=== PATIENT | male | born 2000 | race Caucasian/White ===

== ENCOUNTER 2018-04-19 02:54 | Inpatient (IN) | payer OTHER ==
[~2018-04-19] VITALS: Ht 175.3 cm; Wt 78.7 kg
[2018-04-19] MEDS ORDERED: IBUPROFEN 400 MG TAB PO PRN (04:15)
[2018-04-19] MEDS ORDERED: MAALOX 30 ML SUSP *UDC PO PRN (04:15)
[2018-04-19] MEDS ORDERED: MOM 30ML SUSPENSION UDC PO PRN (04:15)
[2018-04-19 04:52] VITALS: BP 134/60
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
[2018-04-19] MEDS ORDERED: SERTRALINE HCL 50 MG TAB PO ONE (11:15)
[2018-04-19 11:29] LABS: HEMATOCRIT 42.5 % (42.0-52.0); HEMOGLOBIN 14.5 g/dl (13.5-17.5); MEAN CORPUSCULAR HEMOGLOBIN 28.2 pg (27.0-33.0); MEAN CORPUSCULAR HGB CONC 34.1 g/dl (32.0-36.5); MEAN CORPUSCULAR VOLUME 82.7 fl (80.0-96.0); PLATELET COUNT, AUTOMATED 175 10^3/uL (150-450); RED BLOOD COUNT 5.14 10^6/uL (4.30-6.10); WHITE BLOOD COUNT 5.7 10^3/uL (4.0-10.0)
[2018-04-19 12:17] LABS: ALBUMIN 3.7 GM/DL (3.2-5.2); ALT/SGPT 19 U/L (12-78); BILIRUBIN,TOTAL 2.3 MG/DL (0.2-1.0); BLOOD UREA NITROGEN 18 MG/DL (7-18); CARBON DIOXIDE LEVEL 29 MEQ/L (21-32); CHLORIDE LEVEL 107 MEQ/L (98-107); CREATININE FOR GFR 0.83 MG/DL (0.70-1.30); GLUCOSE, FASTING 107 MG/DL (70-100); POTASSIUM SERUM 4.4 MEQ/L (3.5-5.1); SODIUM LEVEL 142 MEQ/L (136-145); TOTAL PROTEIN 6.4 GM/DL (6.4-8.2)
[2018-04-19 18:00] VITALS: BP 134/62
--- NOTE | 2018-04-19 20:11 | ECGEPIP ---
Stationary ECG Study [facility] Test Date: 2018-04-19 Pat Name: DAYSI VALE Department: Room: [place] [address] Gender: M [employer] Librarian: : 2000 Requested By: Delaney Ulloa Order Number: [id number] Reading MD: Momo Salguero Measurements Intervals [place] Rate: 62 P: 36 HI: 144 QRS: 75 QRSD: 105 T: 63 QT: 377 QTc: 385 Interpretive Statements Normal sinus rhythm with PAC Normal EKG Comparison tracing not on file Electronically Signed On 04-19-2018 20:11:18 EDT by Momo Salguero
[2018-04-19] MEDS: traZODone 50 MG TAB PO PRN (21:07)
[2018-04-20 06:00] VITALS: BP 107/51
[2018-04-20] MEDS: SERTRALINE HCL 50 MG TAB PO SCH (09:24)
--- NOTE | 2018-04-20 10:05 | MHIPNPDOC ---
[facility] Progress Note Progress Note DATE OF SERVICE: 04/20/18 HISTORY: Patient is a 17 -year-old , AD male, with no previous psych history who was transferred from [facility] after stabilized after he consumed a bottle and a half of Nyquil he stated in the ED to "fall asleep." Per ED, Pt had told Jose David that he wasn't do well and took 1.5 bottle nyquil then text "the worst I've ever been" and pt needing to talk to someone but failed to text his Jose David back after an hour like he was asked so Jose David went to check on pt. Per ED, pt has been going thru psychosocial stressors of his leaving him and becoming with another man, his girlfriend breaking up with him, and his grandfather passing away 04/15/18. Pt in the ED stated he usually drinks 'three sips" of nyquil nightly to fall asleep but took 1.5 bottles at 1600 in an attempt to sleep thru the night. Per ED, pt minimizing OD. VITAL SIGNS: See below. NEW TEST RESULTS: See below. CURRENT MEDICATIONS: See below. MENTAL STATUS EXAMINATION: General Appearance: well groomed, appears stated age, hospital scubs/clothing Build: average Demeanor: withdrawn, guarded Eye Contact: poor Activity: anxious Behavior: cooperative, withdrawn Speech: clear, normal volume, reg/rate,rhythm,volume Mood: depressed, anxious Mood sad Affect: constricted, flat, appropriate, congruent, anxious Thought Process: logical/linear, depressed, intact Thought Content (Delusions): none reported, denies SI, HI, AVH Thought Content (Other): none reported, appropriate Thought Content (Aggressive): none reported Perception (Hallucinations): none reported Perception (Other): none reported Cognition (Impairment of): none reported Cognition(Intelligence Est.): average Oriented: Awake, Alert, Oriented times three Insight: poor Judgment: Poor Psychosis: Denies DIAGNOSES: Major Depressive D/O 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 Pt unwilling to talk fully about his sadness or find anything within him that may make him feel good or no sad. He is very guarded still and gives superficial responses to escape talking about his feelings. States he's tolerating zoloft but unsure if it's beneficial yet. States trazodone was beneficial for sleep. He has poor insight and judgement due to desire to just hold all his thoughts and feelings in and not talk about them or let himself be vulnerable. Admits he's not attending most of the groups and highly encouraged to go as part of his treatment and attempt to talk to staff more about his overall well being. Denies SI/HI, hallucinations, delusions. Feels safe here. MANAGEMENT PLAN: continue plan. Medications: zoloft 50mg daily trazodone 50mg qhs prn insomnia TIME SPENT: 30 minutes. Vital Signs Vital Signs Date Time Temp Pulse Resp B/P (MAP) Pulse Ox O2 Delivery O2 Flow Rate FiO2 04/20/18 06:00 98.3 60 14 107/51 (69) 04/19/18 03:12 99 Room Air Laboratory Data 24H Labs Laboratory Tests 2 04/19/18 10:29: Nucleated Red Blood Cells % (auto) 0.0, Anion Gap 6L, Blood Urea Nitrogen 18, C reatinine 0.83, Sodium Level 142, Potassium Level 4.4, Chloride Level 107, Carbon Dioxide Level 29, Calcium Level 9.0, Aspartate Amino Transf (AST/SGOT) 12, Alanine Aminotransferase (ALT/SGPT) 19, Alkaline Phosphatase 57, Total Bilirubin 2.3H, Total Protein 6.4, Albumin 3.7, Albumin/Globulin Ratio 1.37, Thyroid Stimulating Hormone (TSH) 1.120 CBC/BMP Laboratory Tests 04/19/18 10:29 Red Blood Count 5.14, Mean Corpuscular Volume 82.7, Mean Corpuscular Hemoglobin 28.2, Mean Corpuscular Hemoglobin Concent 34.1, Red Cell Distribution Width 12.3, Calcium Level 9.0, Aspartate Amino Transf (AST/SGOT) 12, Alanine Aminotransferase (ALT/SGPT) 19, Alkaline Phosphatase 57, Total Bilirubin 2.3 H, Total Protein 6.4, Albumin 3.7 Current Medications Current Medications Al Hydrox/Mg Hydrox/Simethicone (Mylanta) 30 ml Q4HP PRN PO HEARTBURN/ INDIGESTION; Start 04/19/18 at 04:15 Home Med (Med Rec Complete!) ASDIRECTED XX ; Start 04/19/18 at 04:15; Stop 04/19/18 at 04:15; Status DC Ibuprofen (Advil) 600 mg Q6HP PRN PO PAIN OR FEVER; Start 04/19/18 at 04:15 Magnesium Hydroxide (Milk Of Magnesia) 30 ml DAILYPRN PRN PO CONSTIPATION; Sta rt 04/19/18 at 04:15 Sertraline HCl (Zoloft) 50 mg DAILY PO Last administered on 04/20/18at 09:24; S tart 04/20/18 at 09:00 Trazodone HCl (Desyrel) 50 mg QHSP PRN PO INSOMNIA Last administered on at 21:07; Start 04/19/18 at 04:15 Allergies Coded Allergies: No Known Allergies (Unverified , 04/19/18) [place] DO Apr 20, 2018 10:05 am
[2018-04-20 18:18] VITALS: BP 103/68
[2018-04-20] MEDS: traZODone 50 MG TAB PO PRN (22:25)
[2018-04-21 06:41] VITALS: BP 111/54
[2018-04-21] MEDS: SERTRALINE HCL 50 MG TAB PO SCH (08:21)
--- NOTE | 2018-04-21 09:02 | MHIPNPDOC ---
[facility] Progress Note Progress Note DATE OF SERVICE: 04/21/18 HISTORY: Patient is a 17 -year-old , AD male, with no previous psych history who was transferred from [facility] after stabilized after he consumed a bottle and a half of Nyquil he stated in the ED to "fall asleep." Per ED, Pt had told Jose David that he wasn't do well and took 1.5 bottle nyquil then text "the worst I've ever been" and pt needing to talk to someone but failed to text his Jose David back after an hour like he was asked so Jose David went to check on pt. Per ED, pt has been going thru psychosocial stressors of his leaving him and becoming with another man, his girlfriend breaking up with him, and his grandfather passing away 04/15/18. Pt in the ED stated he usually drinks 'three sips" of nyquil nightly to fall asleep but took 1.5 bottles at 1600 in an attempt to sleep thru the night. Per ED, pt minimizing OD. VITAL SIGNS: See below. NEW TEST RESULTS: See below. CURRENT MEDICATIONS: See below. MENTAL STATUS EXAMINATION: General Appearance: well groomed, appears stated age, hospital scubs/clothing Build: average Demeanor: cooperative, average Eye Contact: fair Activity: average Behavior: cooperative, pleasant Speech: clear, normal volume, reg/rate,rhythm,volume Mood: less depressed and anxious Mood much better Affect: no longer constricted, appropriate, congruent, anxious Thought Process: logical/linear, less depressed, intact Thought Content (Delusions): none reported, denies SI, HI, AVH Thought Content (Other): none reported, appropriate Thought Content (Aggressive): none reported Perception (Hallucinations): none reported Perception (Other): none reported Cognition (Impairment of): none reported Cognition(Intelligence Est.): average Oriented: Awake, Alert, Oriented times three Insight: improving Judgment: improving Psychosis: Denies DIAGNOSES: 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 Pt states he's finding his medications beneficial, especially zoloft, and is tolerating it well. No lnger guarded and withdrawn. States he's being social in the milieu, speaking with staff, and attending groups all of which has been beneficial for his mood. States trazodone was beneficial for sleep. He has improving insight and judgement. States he's over his girlfriend as she hasn't even called to making sure he's ok. States he's been speaking with his family on the phone and they are very supportive of him. Denies SI/HI, hallucinations, delusions. Feels safe here. MANAGEMENT PLAN: continue plan. Medications: zoloft 50mg daily trazodone 50mg qhs prn insomnia TIME SPENT: 30 minutes. Vital Signs Vital Signs Date Time Temp Pulse Resp B/P (MAP) Pulse Ox O2 Delivery O2 Flow Rate FiO2 04/21/18 06:41 97.7 50 18 111/54 (73) 04/19/18 03:12 99 Room Air Current Medications Current Medications Al Hydrox/Mg Hydrox/Simethicone (Mylanta) 30 ml Q4HP PRN PO HEARTBURN/INDIGESTION; Start 04/19/18 at 04:15 Home Med (Med Rec Complete!) ASDIRECTED XX ; Start 04/19/18 at 04:15; Stop 04/19/18 at 04:15; Status DC Ibuprofen (Advil) 600 mg Q6HP PRN PO PAIN OR FEVER; Start 04/19/18 at 04:15 Magnesium Hydroxide (Milk Of Magnesia) 30 ml DAILYPRN PRN PO CONSTIPATION; Start 04/19/18 at 04:15 Sertraline HCl (Zoloft) 50 mg DAILY PO Last administered on 04/21/18at 08:21; Start 04/20/18 at 09:00 Trazodone HCl (Desyrel) 50 mg QHSP PRN PO INSOMNIA Last administered on 04/20/18at 22:25; Start 04/19/18 at 04:15 Allergies Coded Allergies: No Known Allergies (Unverified , 04/19/18) [place] DO Apr 21, 2018 9:02 am
[2018-04-21 18:00] VITALS: BP 112/62
[2018-04-21] MEDS: traZODone 50 MG TAB PO PRN (22:25)
[2018-04-22 06:23] VITALS: BP 120/58
[2018-04-22] MEDS: SERTRALINE HCL 50 MG TAB PO SCH (08:23)
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
[2018-04-22 18:00] VITALS: BP 116/58
[2018-04-22] MEDS: DOXEPIN 10 MG CAP PO SCH (22:32)
[2018-04-23 06:00] VITALS: BP 101/57
[2018-04-23] MEDS: SERTRALINE HCL 50 MG TAB PO SCH (09:08)
[2018-04-23 18:12] VITALS: BP 118/67
[2018-04-23] MEDS: DOXEPIN 10 MG CAP PO SCH (21:44)
[2018-04-24 06:52] VITALS: BP 111/53
[2018-04-24] MEDS: SERTRALINE HCL 50 MG TAB PO SCH (08:00)
[2018-04-24 18:04] VITALS: BP 143/66
[2018-04-24] MEDS: DOXEPIN 10 MG CAP PO SCH (20:02)
[2018-04-25 06:31] VITALS: BP 141/64
[2018-04-25] MEDS: SERTRALINE HCL 50 MG TAB PO SCH (08:20)
--- NOTE | 2018-04-25 08:43 | MHDSPDOC ---
[facility] Discharge Summary Discharge Summary DATE OF ADMISSION: Apr 19, 2018 at 4:02 am DATE OF DISCHARGE: Apr 25, 2018 DISCHARGE DIAGNOSES: Major Depressive D/O first episode severe w/o psychosis Generalized anxiety d/o REASON FOR ADMISSION: Patient is a 17 -year-old , AD male, with no previous psych history who was transferred from [facility] after stabilized after he consumed a bottle and a half of Nyquil he stated in the ED to "fall asleep." Per ED, Pt had told Jose David that he wasn't do well and took 1.5 bottle nyquil then text "the worst I've ever been" and pt needing to talk to someone but failed to text his Jose David back after an hour like he was asked so Jose David went to check on pt. Per ED, pt has been going thru psychosocial stressors of his leaving him and becoming with another man, his girlfriend breaking up with him, and his grandfather passing away 04/15/18. Pt in the ED stated he usually drinks 'three sips" of nyquil nightly to fall asleep but took 1.5 bottles at 1600 in an attempt to sleep thru the night. Per ED, pt minimizing OD. CONSULTANTS INVOLVED: none TREATMENT AND PROGRESS ON THE UNIT : Pt was admitted to [facility], seen for psychiatric assessment and started on zoloft 50mg daily. He was provided doxepin 10mg qhs prn insomnia. Pt found his medications beneficial and tolerated them well. He attended groups daily during his stay. His symptoms improved with treatment. On day of discharge he denied depression, anxiety, insomnia, SI/HI, hallucinations, delusions. He was discharged home after [facility] meeting with follow-up at [facility]. He felt safe for discharge. DISCHARGE ASSESSMENT: Pt seen and states he feels doing well today and his mood is good. States he's looking forward to being discharged home with his Jose David today. He appears euthymic, bright, and calm. Pt states he's finding his medications beneficial, especially zoloft, and is tolerating it well. No longer guarded and withdrawn. States he's being social in the milieu, speaking with staff, and attending groups all of which has been beneficial for his mood. States he's been speaking with his family on the phone and they are very supportive of him. Denies depression, anxiety, insomnia, SI/HI, hallucinations, delusions. Feels safe to be discharged home with his Jose David. MENTAL STATUS EXAMINATION ON DISCHARGE: General Appearance: well groomed, appears stated age, own clothing Build: average Demeanor: cooperative, average Eye Contact: good Activity: average Behavior: cooperative, pleasant Speech: clear, normal volume, reg/rate,rhythm,volume Mood: euthymic, full, bright Mood good Affect: euthymic, full, bright, appropriate, congruent Thought Process: logical/linear, intact Thought Content (Delusions): none reported, denies SI, HI, AVH Thought Content (Other): none reported, appropriate Thought Content (Aggressive): none reported Perception (Hallucinations): none reported Perception (Other): none reported Cognition (Impairment of): none reported Cognition(Intelligence Est.): average Oriented: Awake, Alert, Oriented times three Insight: good Judgment: good Psychosis: Denies MEDICATIONS ON DISCHARGE: zoloft 50mg daily Doxepin 10mg qhs prn insomnia PLAN/FOLLOWUP ARRANGEMENTS: D/c home with Jose David with follow-up at [facility]. The amount of time spent in the coordination of care for this patient was approximately 30 minutes. Vital Signs/I&Os Vital Signs Date Time Temp Pulse Resp B/P (MAP) Pulse Ox O2 Delivery O2 Flow Rate FiO2 04/25/18 06:31 97.5 80 18 141/64 (89) 04/19/18 03:12 99 Room Air Medications Scheduled Doxepin HCl (Doxepin HCl) 10 Mg Cap, 10 MG PO QHS for insomnia, #10 Sertraline Hcl (Sertraline HCl) 50 Mg Tab, 50 MG PO DAILY for mood, #10 Allergies Coded Allergies: No Known Allergies (Unverified , 04/19/18) [place] DO Apr 25, 2018 8:43 am
[2018-04-25] MEDS ORDERED: DOXE10CA PO (08:45)
[2018-04-25] MEDS ORDERED: SERT50TA PO (08:45)
== END 2018-04-25 11:45 | disposition home or self-care (01) | DRG 885 ==
LOC: M ED 02:54 → M ED INP 04:02 → M PSY 04:37
PROVIDERS: ADMIT Psychiatry & Neurology Psychiatry; ATTEND Psychiatry & Neurology Psychiatry
DX: F32.2 Major depressive disorder, single episode, severe without psychotic features (principal); F41.1 Generalized anxiety disorder; Z81.1 Family history of alcohol abuse and dependence; G47.00 Insomnia, unspecified; Z63.5 Disruption of family by separation and divorce